=== PATIENT | male | born 1970 | race Hispanic/Latino ===

== ENCOUNTER 2020-06-17 14:54 | Emergency (ER) | payer OTHER ==
--- OUTSIDE RECORDS SUMMARY | 2020-06-17 15:01 | XMS REPORT | Continuity of Care Document ---
:1970 Author Organization [facility] t Address [address] [place] [address] Care Team Providers Name Role Phone Pcp MD Primary Care Physician Unavailable Sarah ADLER, K N Attending Clinician Salvatore ADLER, A Attending Clinician Problems Condition Condition Condition Status Onset Resolution Last Treating Co mments Source Name Details Category Date Date Treatment Clinician Date Uncontroll Uncontroll Disease Active C [facility] other ed other 09-30 [facility] - specified specified 00:00: [facility] diabetes diabetes 00 Center mellitus mellitus with stage with stage 4 chronic 4 chronic kidney kidney disease, disease, unspecifie unspecifie d whether d whether senior living senior living insulin insulin use use Essential Essential Disease Active [facility] hypertensi hypertensi 09-30 Nakia kes - on, on, 00:00: Medical malignant malignant 00 Cent er Anemia of Anemia of Disease Active [facility] renal renal 09-30 kes - disease disease 00:00: Medical 00 Center Pre-transp Pre-transp Disease Active [facility] 09-30 [facility] - evaluation evaluation 00:00: De dical for for 00 Center chronic chronic kidney kidney disease disease ESRD (end ESRD (end Disease Active [facility] stage stage 09-30 [facility] - renal renal 00:00: Medical disease) disease) 00 Center Allergies, Adverse Reactions, Alerts This patient has no known allergies or adverse reactions. Social History Social Habit Start Date Stop Date Quantity Comments Source Sex Assigned At [facility] Smoking Status Start Date Stop Date Source Former smoker 2018-05-08 00:00:00 2018-05-08 00:00:00 [facility] Medications Ordered Filled Start Stop Current Ordering Indication Dosage Frequency Signature Comments Components Source Medication Medication Date Date Medication? Clinician (SIG) Name Name omega-3 Yes 2g Q.5D Take [address] [facility] fatty 9-11 by mouth [facility] - acids-fish 12:01: (two) Medica l oil 12 times Center 340-1,000 daily. mg Cap per capsule FA-vit Yes 1{tbl} QD Take [address] [facility] Bcomp&C-clem 9-11 tablet by Sil[facility] - enium-zinc 12:01: mouth Medica l (FOLIC 12 daily. [place] ACID-VITAMI N B COMPLEX-VIT SAMPSON C-SELENIUM- ZINC) 3-70-15 mg-mcg-mg Tab labetalol Yes 100mg Q.5D Take [address] [facility] (NORMODYNE) 9-11 mg by [facility] - 100 MG 12:01: mouth 2 Medical tablet 12 (two) Center times daily. amLODIPine Yes 10mg QD Take [address] (NORVASC) 9-11 by mouth [facility] - 10 MG 12:01: daily. Medical tablet 12 [place] lisinopril Yes 40mg QD Take [address] (PRINIVIL,Z 9-11 by mouth [facility] - ESTRIL) 40 12:01: daily. Medic al MG tablet 12 [place] SITagliptin Yes 25mg QD Take [address] [facility] (JANUVIA) 9-11 by mouth [facility] - 25 MG 12:01: daily. Medical tablet 12 [place] sevelamer Yes 800mg Take [address] [facility] (RENVELA) 9-11 mg by [facility] - 800 mg 11:59: mouth 3 Medical tablet 36 (three) Center times daily with meals 4 tabs with each meal . Procedures This patient has no known procedures. Plan of Care Planned Activity Planned Date Details Comments Source Future Scheduled 2019-11-10 INFLUENZA VACCINE (#1) [facility] - Test 00:00:00 [code = INFLUENZA Medical Ce nter VACCINE (#1)] Future Scheduled 2017-10-[address] [facility] - Test 00:00:00 WELLNESS (YEAR 2 or Medical Center FIRST YEAR if no IPPE) [code = MEDICARE ANNUAL WELLNESS (YEAR 2 or FIRST YEAR if no IPPE)] Future Scheduled 2017-09-[address] [facility] - Test 00:00:00 measurement Medical Center (procedure) [code = 11092292] Future Scheduled [address] [facility] - Test 00:00:00 (procedure) [code = Medical Center 54536684] Future Scheduled [address] DIABETIC EYE EXAM [facility] - Test 00:00:00 [code = DIABETIC EYE Medical Center EXAM] Future Scheduled [address] [facility] [address] [facility] - Test 00:00:00 examination Medical Center (regime/therapy) [code = 748835321] Future Scheduled 1980 Urine screening for [facility] - Test 00:00:00 protein (procedure) Medical Center [code = 224774770] Future Scheduled [address] [facility] - Test 00:00:00 0-64 YRS (1 of 1 - Medical C enter PPSV23) [code = PNEUMOCOCCAL VACCINE 0-64 YRS (1 of 1 - PPSV23)] Encounters Start End Encounter Admission Attending Care Care Encounter Source Date/Time Date/Time Type Type Clinicians Facility Department ID 2020-06-16 2020-06-16 [id number] 00:00:00 00:00:00 Management Cheryl au MULTISPEC [id number] IALTY [id number] [place] [id number] [facility] 2020-05-11 2020-05-11 Telephone Salvatore [facility] [id number] 00:00:00 00:00:00 Zenobia Timmons MULTISPEC [id number] IALTY [id number] [place] [id number] [facility] 2020-04-20 2020-04-20 [facility] [id number] 00:00:00 00:00:00 Cheryl au MULTISPEC [id number] IALTY [id number] [place] [id number] [facility] Results This patient has no known results.
[2020-06-17 17:16] LABS: Absolute Lymphocytes (CBC) 0.5 K/uL (0.7-4.9); Basophils % 0.6 % (0-1.3); Hematocrit 18.4 % (39.6-49.0); Lymphocytes % 6.8 % (15.3-44.8); RBC Red Blood Cell Count 1.97 M/uL (4.33-5.43)
[2020-06-17 17:28] LABS: Protime INR 1.12
[2020-06-17 17:55] LABS: ALT/SGPT 16 U/L (12-78); AST/SGOT 11 U/L (15-37); Albumin 3.5 g/dL (3.4-5.0); Alkaline Phosphatase 34 U/L (45-117); BUN Blood Urea Nitrogen 37 mg/dL (7-18); Bicarbonate 27 mmol/L (21-32); Bilirubin Direct 0.2 mg/dL (0-0.2); Bilirubin Total 0.5 mg/dL (0.2-1.0); Glucose Level 130 mg/dL (74-106); Magnesium 2.6 mg/dL (1.8-2.4); Protein, Total 6.4 g/dL (6.4-8.2); Sodium Level 137 mmol/L (136-145); Troponin (Emerg Dept Use Only) < 0.02 ng/mL (0.0-0.045)
[2020-06-17 18:03] LABS: Potassium 5.7 mmol/L (3.5-5.1)
[2020-06-17 18:23] LABS: Blood Morphology Comment NOTED (NOT SEEN); Hypochromasia 1+; Platelet Estimate ADEQ; White Blood Cell Scan OK (OK)
--- NOTE | 2020-06-17 18:35 | RAD REPORT ---
EXAM DESCRIPTION: RAD - Chest Single View - 06/17/2020 6:23 pm CLINICAL HISTORY: anemia Chest pain. COMPARISON: No comparisons FINDINGS: Portable technique limits examination quality. The lungs are grossly clear. The heart is normal in size. No displaced fractures. IMPRESSION: No acute intrathoracic process suspected.
[2020-06-17] MEDS ORDERED: ALBUTEROL 2.5 MG/3 ML NEB SOL ONE (18:51)
[2020-06-17] MEDS ORDERED: INSULIN -REGULAR HUMAN 50 UNIT/0.5 ML ML ONE (18:52)
[2020-06-17] MEDS ORDERED: SOD POLYSTYREN SUL 15 GM/60 ML UCUP ONE (18:52)
[2020-06-17] MEDS ORDERED: D50W 25 GM/50 ML SYRINGE IV ONE (18:53)
[2020-06-17] MEDS ORDERED: FUROSEMIDE 100 MG/10 ML VIAL IV ONE (19:25)
--- NOTE | 2020-06-17 19:42 | RAD REPORT ---
EXAM DESCRIPTION: CT - Abdomen Pelvis Wo Contrast - 06/17/2020 7:26 pm CLINICAL HISTORY: Abdominal pain. rectal bleeding COMPARISON: No comparisons TECHNIQUE: CT imaging of the abdomen and pelvis was performed without contrast. Solid organ, bowel a nd vascular assessment is limited due to lack of IV and oral contrast. All CT scans are performed using dose optimization technique as appropriate and may include automated exposure control or mA/KV adjustment according to patient size. FINDINGS: The lower lung caceres are clear. The liver, spleen, pancreas, adrenal glands and kidneys are within normal limits for a limited non-co ntrast examination.Cholecystectomy clips. No bowel obstruction, free air, free fluid or abscess. Mild rectosigmoid wall thickening is present s uggesting colitis. Numerous sigmoid diverticula are present. The appendix is normal. The osseous structures are within normal limits. IMPRESSION: Mild rectosigmoid colitis is a possibility. A limited non-contrast examination was performed as detailed.
--- NOTE | 2020-06-17 20:04 | ER ---
Nurse's Notes [facility] Name: Jose E Kumar Jr Age: 50 yrs Sex: Male : 1970 Arrival Date: 06/17/2020 Time: 14:59 Bed 13 Private MD: Diagnosis: Gastrointestinal hemorrhage, unspecified;Anemia in chronic diseases classified elsewhere;Hyperkalemia;Colitis Presentation: 06/17 15:19 Chief complaint: Parent and/or Guardian states: Mother states, "He has vision problems ss and didn't realize that he had blood in his stool. I looked in the toilet and there was some blood on the toilet paper. He had a colonoscopy in [place] a week ago and that doctor told him to come here." Pt c/o feeling tired and intermittent dizziness that began this morning. Coronavirus screen: Client denies travel out of the [place] in the last 14 days. Ebola Screen: Patient denies exposure to infectious person. Patient denies travel to an Ebola-affected area in the 21 days before illness onset. Initial Sepsis Screen: Does the patient meet any 2 criteria? No. Patient's initial sepsis screen is negative. Does the patient have a suspected source of infection? No. Patient's initial sepsis screen is negative. Risk Assessment: Do you want to hurt yourself or someone else? Patient reports no desire to harm self or others. Onset of symptoms was June 17, 2020. 15:19 Method Of Arrival: Wheelchair ss 15:19 Acuity: DENISHA 3 ss Historical: - Allergies: 15:23 No Known Allergies; ss - PMHx: 15:23 dialysis MWF; ESRD; Diabetes - IDDM; Hypertension; High Cholesterol; ss - PSHx: 15:23 Dialysis fistula L forearm; Cholecystectomy; L 5th digit removed; ss - Immunization history:: Adult Immunizations up to date. - Social history:: Smoking status: Patient denies any tobacco usage or history of. Screenin:06 Abuse screen: Denies threats or abuse. Nutritional screening: No deficits noted. ll1 Tuberculosis screening: No symptoms or risk factors identified. Fall Risk IV access (20 points). Gait- Weak (10 pts.). Total Edmondson Fall Scale indicates Low Risk Score (25-44 pts). Fall prevention measures have been instituted. Side Rails Up X 2 Frequent Obs/Assesments occuring As available Patient and Family Educated on Fall Prevention Program and strategies. Assessment: 15:25 General: Appears in no apparent distress. Behavior is calm, cooperative, appropriate ll1 for age. Pain: Denies pain. Neuro: Level of Consciousness is awake, alert, obeys commands, Oriented to person, place, time, situation, Appropriate for age Blender Conveyor Operator are equal bilaterally Moves all extremities. Full function Gait is steady, Speech is normal, Facial symmetry appears normal, Reports dizziness, weakness. Cardiovascular: Reports fatigue, Heart tones S1 S2 Capillary refill < 3 seconds Clubbing of nail beds is absent JVD is absent Patient's skin is warm and dry. GI: Abdomen is flat, Bowel sounds present X 4 quads. Abd is soft and non tender X 4 quads. Reports rectal bleeding. 16:25 Reassessment: No changes from previously documented assessment. Patient and/or family ll1 updated on plan of care and expected duration. Pain level reassessed. Patient is alert, oriented x 3, equal unlabored respirations, skin warm/dry/pink. 17:25 Reassessment: No changes from previously documented assessment. Patient and/or family ll1 updated on plan of care and expected duration. Pain level reassessed. Patient is alert, oriented x 3, equal unlabored respirations, skin warm/dry/pink. 18:30 Reassessment: No changes from previously documented assessment. Patient and/or family ll1 updated on plan of care and expected duration. Pain level reassessed. 19:30 Reassessment: No changes from previously documented assessment. Patient and/or family ll1 updated on plan of care and expected duration. Pain level reassessed. 20:30 Reassessment: No changes from previously documented assessment. Patient and/or family ll1 updated on plan of care and expected duration. Pain level reassessed. 21:30 Reassessment: No changes from previously documented assessment. Patient and/or family ll1 updated on plan of care and expected duration. Pain level reassessed. 22:45 Reassessment: Patient appears in no apparent distress at this time. Patient and/or sf family updated on plan of care and expected duration. Pain level reassessed. Patient is alert, oriented x 3, equal unlabored respirations, skin warm/dry/pink. 23:17 Reassessment: Patient appears in no apparent distress at this time. No changes from sf previously documented assessment. Patient and/or family updated on plan of care and expected duration. Pain level reassessed. Patient is alert, oriented x 3, equal unlabored respirations, skin warm/dry/pink. Given another warm blanket. Vital Signs: 15:19 BP 120 / 58; Pulse 64; Resp 16; Temp 97.5(TE); Pulse Ox 100% on R/A; Weight 87.5 kg ss (M); Height 5 ft. 7 in. (170.18 cm); Pain 0/10; 18:36 BP 153 / 77; Pulse 65; Resp 16; Pulse Ox 100% ; ll1 22:06 BP 125 / 65; Pulse 67; Resp 16; Temp 97.5; Pulse Ox 100% on R/A; Pain 0/10; ll1 22:45 BP 118 / 63; Pulse 65; Resp 16; Temp 97.8; Pulse Ox 98% ; sf 23:30 BP 134 / 69; Pulse 64; Resp 16; Temp 97.9; Pulse Ox 100% ; sf 15:19 Body Mass Index 30.21 (87.50 kg, 170.18 cm) ED Course: 14:59 Patient arrived in ED. ds1 15:21 Triage completed. ss 15:23 Arm band placed on right wrist. ss 16:28 Suad Ambriz, BONI is Primary Nurse. ll1 16:43 Sabas Stroud PA is PHCP. cp 16:43 Sabas Allen MD is Attending Physician. cp 17:16 Inserted saline lock: 20 gauge in right antecubital area, using aseptic technique. mt Blood collected. 18:23 XRAY Chest (1 view) In Process Unspecified. EDMS 19:25 Abdomen In Process Unspecified. EDMS 19:54 Initiated Transfer to [facility] spoke with Mary. ar5 20:30 [facility] declined due to all campuses being \\T\\ capacity. ar5 20:31 Initiated transfer to [facility] spoke with Carrie. ar5 20:50 [facility] declined due to being at capacity. ar5 20:53 Initiated transfer to [facility] spoke with Kishor. ar5 21:00 done with Sabas Stroud. ar5 21:15 [facility] accepted waiting on room assignment and AOC. Needs to fax facesheet to ar5 [phone]. 21:30 Inserted saline lock: 22 gauge in right forearm, using aseptic technique. ll1 22:07 Patient has correct armband on for positive identification. Bed in low position. Call ll1 light in reach. Side rails up X 1. Pulse ox on. NIBP on. 22:31 Packed RBC Leukored Sent. sf 22:31 Basic Metabolic Panel Sent. sf 23:14 transfer transportation to receiving facility. sf 23:14 Report given to Pearl Sotomayor RN ([facility], for room 1028). sf 23:14 No provider procedures requiring assistance completed. Patient transferred, IV remains sf in place. 23:40 Report given to [facility] 2. sf Administered Medications: 18:40 Drug: Albuterol 2.5 mg Route: Inhalation; ll1 18:46 Drug: Insulin Regular Human 5 units {Co-Signature: bw (Rachel Fischer RN).} Route: IVP; ll1 Site: right forearm; 19:13 Follow up: Response: No adverse reaction; RASS: Alert and Calm (0) ll1 18:47 Drug: D50W 50 ml Route: IVP; Site: right forearm; ll1 19:13 Follow up: Response: No adverse reaction ll1 18:47 Drug: Albuterol 2.5 mg Route: Inhalation; ll1 18:48 Drug: Kayexalate 30 grams Route: PO; ll1 19:14 Follow up: Response: No adverse reaction ll1 19:12 Drug: Lasix (furosemide) 60 mg Route: IVP; Site: right forearm; 1 22:20 Follow up: Response: No adverse reaction; RASS: Alert and Calm (0) ll1 19:13 Drug: Albuterol 2.5 mg Route: Inhalation; ll1 19:14 Follow up: Response: No adverse reaction ll1 20:04 Drug: metroNIDAZOLE 500 mg Volume: 100 ml; Route: IVPB; Infused Over: 30 mins; Site: ll1 right antecubital; 21:18 Follow up: Response: No adverse reaction; RASS: Alert and Calm (0); IV Status: ll1 Completed infusion; IV Intake: 50ml 21:18 Drug: Cipro (ciprofloxacin) 200 mg Volume: 100 ml; Route: IVPB; Infused Over: 60 mins; 1 Site: right forearm; 22:20 Follow up: Response: No adverse reaction; RASS: Alert and Calm (0); IV Status: ll1 Completed infusion; IV Intake: 100ml Intake: 21:18 IV: 50ml; Total: 50ml. ll1 22:20 IV: 100ml; Total: 150ml. ll1 Outcome: 20:03 ER care complete, transfer ordered by cp 23:14 Transferred by ground EMS to [facility], Transfer form sf completed. 23:14 Condition: stable 23:14 Instructed on the need for admit. 23:59 Patient left the ED. sf Signatures: Dispatcher [employer] EDMS Maribel Waters ds1 Kendal Machado RN RN ss Sabas Stroud PA PA cp Thompson, Moriah mt Robles, Autumn ar5 Lewis, Lynsay, RN RN ll1 Carlos John RN RN sf Rachel Fischer RN Corrections: (The following items were deleted from the chart) 15:21 15:19 Chief complaint: Parent and/or Guardian states: Mother states, "He has vision ss problems and didn't realize that he had blood in his stool. I looked in the toilet and there was some blood on the toilet paper." Pt c/o feeling tired and intermittent dizziness that began this morning. ss 19:13 18:47 Albuterol 2.5 mg Inhalation ll1 ll1 21:14 20:56 Initiated Transfer to [facility] spoke with Mary gutiérrez
--- NOTE | 2020-06-17 20:04 | EDPHYS ---
Physician Documentation [facility] Name: oJse E Kumar Jr Age: 50 yrs Sex: Male : 1970 Arrival Date: 06/17/2020 Time: 14:59 Bed 13 Private MD: ED Physician Sabas Allen HPI: 06/17 17:05 This 50 yrs old Male presents to ER via Wheelchair with complaints of Rectal cp Bleeding, Weakness. 17:05 The patient presents to the emergency department with bleeding from the rectum/anus, cp that is moderate. Onset: The symptoms/episode began/occurred at an unknown time. Associate signs and symptoms: Pertinent positives: general weakness. Historical: - Allergies: 15:23 No Known Allergies; ss - PMHx: 15:23 dialysis MWF; ESRD; Diabetes - IDDM; Hypertension; High Cholesterol; ss - PSHx: 15:23 Dialysis fistula L forearm; Cholecystectomy; L 5th digit removed; ss - Immunization history:: Adult Immunizations up to date. - Social history:: Smoking status: Patient denies any tobacco usage or history of. ROS: 17:10 Abdomen/GI: Positive for rectal bleeding. cp 17:10 Eyes: Negative for injury, pain, redness, and discharge. cp 17:10 Constitutional: Negative for body aches, chills, fever, poor PO intake. 17:10 Cardiovascular: Negative for chest pain, edema, palpitations. 17:10 Respiratory: Negative for cough, shortness of breath, wheezing. 17:10 Neuro: Positive for general weakness, Negative for altered mental status, dizziness, syncope. 17:10 All other systems are negative. Exam: 17:15 Constitutional: The patient appears in no acute distress, alert, awake, cp non-diaphoretic, non-toxic, well developed, well nourished. 17:15 Head/Face: Normocephalic, atraumatic. cp 17:15 Eyes: Periorbital structures: appear normal, Conjunctiva: normal, no exudate, no injection, Sclera: no appreciated abnormality, Lids and lashes: appear normal, bilaterally. 17:15 ENT: External ear(s): are unremarkable, Nose: is normal, Mouth: Lips: moist, Oral mucosa: pink and intact, moist, Posterior pharynx: Airway: no evidence of obstruction, patent. 17:15 Neck: ROM/movement: is normal, is supple, without pain, no range of motions limitations. 17:15 Chest/axilla: Inspection: normal, Palpation: is normal, no crepitus, no tenderness. 17:15 Cardiovascular: Rate: normal, Rhythm: regular, Edema: ankle edema, that is mild, JVD: is not appreciated. 17:15 Respiratory: the patient does not display signs of respiratory distress, Respirations: normal, no use of accessory muscles, no retractions, labored breathing, is not present, Breath sounds: are clear throughout, no decreased breath sounds. 17:15 Abdomen/GI: Inspection: abdomen appears normal, Bowel sounds: active, all quadrants, Palpation: abdomen is soft and non-tender, in all quadrants, Rectal exam: gross blood noted maroon colored. 17:15 Back: pain, is absent, ROM is normal. 17:15 Neuro: Orientation: to person, place \T\ time. Mentation: is normal, Motor: moves all fours, strength is normal. 17:28 ECG was reviewed by the Attending Physician. Vital Signs: 15:19 BP 120 / 58; Pulse 64; Resp 16; Temp 97.5(TE); Pulse Ox 100% on R/A; Weight 87.5 kg ss (M); Height 5 ft. 7 in. (170.18 cm); Pain 0/10; 18:36 BP 153 / 77; Pulse 65; Resp 16; Pulse Ox 100% ; ll1 22:06 BP 125 / 65; Pulse 67; Resp 16; Temp 97.5; Pulse Ox 100% on R/A; Pain 0/10; ll1 22:45 BP 118 / 63; Pulse 65; Resp 16; Temp 97.8; Pulse Ox 98% ; sf 23:30 BP 134 / 69; Pulse 64; Resp 16; Temp 97.9; Pulse Ox 100% ; sf 15:19 Body Mass Index 30.21 (87.50 kg, 170.18 cm) ss MDM: 16:45 Patient medically screened. lesli 17:30 Differential diagnosis: hemorrhoids, colitis, anemia, diverticulitis. cp 20:00 Data reviewed: vital signs, nurses notes, lab test result(s), EKG, radiologic studies, cp CT scan, plain films. 20:00 Test interpretation: by ED physician or midlevel provider: ECG, plain radiologic cp studies. 21:33 Physician consultation: was contacted at 21:30, regarding regarding transfer, to [facility]. cp patient's condition, accepting physician will be DR Jelani Maya. 06/17 17:01 Order name: Basic Metabolic Panel 06/17 17:01 Order name: CBC with Diff cp 06/17 17:31 Interpretation: Normal except: RBC 1.97; HGB 6.0; HCT 18.4; RDW 15.5; RITA% 86.0; LYM% cp 6.8. 06/17 17:01 Order name: LFT's; Complete Time: 18:21 cp 06/17 21:10 Interpretation: Normal except: AST 11; ALK 34. cp 06/17 17:01 Order name: Magnesium; Complete Time: 18:21 cp 06/17 17:01 Order name: PT-INR; Complete Time: 17:31 cp 06/17 17:01 Order name: Troponin (emerg Dept Use Only); Complete Time: 18:21 cp 06/17 17:01 Order name: Ptt, Activated; Complete Time: 17:31 cp 06/17 17:01 Order name: Type And Screen 06/17 17:02 Order name: Basic Metabolic Panel; Complete Time: 18:21 EDMS 06/17 18:21 Interpretation: Normal except: K 5.7; GLUC 130; BUN 37; CRE 6.32; GFR 9; CA 8.4. cp 06/17 18:01 Order name: Packed RBC Leukored EDLA 06/17 18:23 Order name: CBC Smear Scan EDLA 06/17 18:28 Order name: SARS-COV-2 RT PCR; Complete Time: 19:47 EDLA 06/17 17:01 Order name: EKG; Complete Time: 17:02 cp 06/17 17:01 Order name: Cardiac monitoring; Complete Time: 17:21 cp 06/17 17:01 Order name: EKG - Nurse/Tech; Complete Time: 17:19 cp 06/17 17:01 Order name: IV Saline Lock; Complete Time: 17:17 cp 06/17 17:01 Order name: Labs collected and sent; Complete Time: 17:17 cp 06/17 17:01 Order name: O2 Per Protocol; Complete Time: 17:17 cp 06/17 17:01 Order name: O2 Sat Monitoring; Complete Time: 17:17 cp 06/17 17:16 Order name: Abdomen ; Complete Time: 19:47 EDMS 06/17 17:33 Order name: XRAY Chest (1 view); Complete Time: 19:47 cp 06/17 18:27 Order name: Vital Signs: please update; Complete Time: 18:38 cp 06/17 19:56 Order name: Transfuse; Complete Time: 22:31 cp EC:28 Rate is 67 beats/min. Rhythm is regular. ME interval is normal. QRS interval is normal. cp QT interval is normal. T waves are Inverted in lead aVR. Interpreted by me. Reviewed by me. Administered Medications: 18:40 Drug: Albuterol 2.5 mg Route: Inhalation; ll1 18:46 Drug: Insulin Regular Human 5 units {Co-Signature: chelita (Rachel Fischer RN).} Route: IVP; 1 Site: right forearm; 19:13 Follow up: Response: No adverse reaction; RASS: Alert and Calm (0) 1 18:47 Drug: D50W 50 ml Route: IVP; Site: right forearm; 1 19:13 Follow up: Response: No adverse reaction 1 18:47 Drug: Albuterol 2.5 mg Route: Inhalation; 1 18:48 Drug: Kayexalate 30 grams Route: PO; ll1 19:14 Follow up: Response: No adverse reaction ll1 19:12 Drug: Lasix (furosemide) 60 mg Route: IVP; Site: right forearm; 1 22:20 Follow up: Response: No adverse reaction; RASS: Alert and Calm (0) 1 19:13 Drug: Albuterol 2.5 mg Route: Inhalation; ll1 19:14 Follow up: Response: No adverse reaction ll1 20:04 Drug: metroNIDAZOLE 500 mg Volume: 100 ml; Route: IVPB; Infused Over: 30 mins; Site: ll1 right antecubital; 21:18 Follow up: Response: No adverse reaction; RASS: Alert and Calm (0); IV Status: ll1 Completed infusion; IV Intake: 50ml 21:18 Drug: Cipro (ciprofloxacin) 200 mg Volume: 100 ml; Route: IVPB; Infused Over: 60 mins; 1 Site: right forearm; 22:20 Follow up: Response: No adverse reaction; RASS: Alert and Calm (0); IV Status: ll1 Completed infusion; IV Intake: 100ml Disposition: 06/18 07:32 Co-signature as Attending Physician, Sabas Allen MD I agree with the assessment and [facility] plan of care. Disposition: 06/17/20 20:03 Transfer ordered to [facility]. Diagnosis are Gastrointestinal hemorrhage, unspecified, Anemia in chronic diseases classified elsewhere, Hyperkalemia, Colitis. - Reason for transfer: Higher level of care. - Accepting physician is DR Jelani Maya. - Condition is Stable. - Problem is new. - Symptoms have improved. Signatures: Dispatcher [employer] EDMS Sabas Allen MD MD cha Smirch, Shelby, RN RN ss Sabas Stroud PA PA cp Lewis, Lynsay RN RN ll1 Carlos John RN RN Rachel Fischer RN Corrections: (The following items were deleted from the chart) 06/17 17:16 17:02 Abdomen Pelvis W Con+CT.RAD.BRZ ordered. EDLA EDMS 17:41 17:03 CORONAVIRUS+MR.LAB.BRZ ordered. EDLA EDMS 18:21 18:21 Normal except: K 5.7; GLUC 130; BUN 37; CRE 6.32; GFR 9. cp cp 22:14 20:03 06/17/2020 20:03 Transfer ordered to [facility]. Diagnosis is cp Gastrointestinal hemorrhage, unspecified; Anemia in chronic diseases classified elsewhere; Hyperkalemia. Reason for transfer: Higher level of care. Accepting physician is Doctor. Condition is Stable. Problem is new. Symptoms have improved. cp 22:14 22:14 06/17/2020 20:03 Transfer ordered to [facility]. Diagnosis is cp Gastrointestinal hemorrhage, unspecified; Anemia in chronic diseases classified elsewhere; Hyperkalemia; Colitis. Reason for transfer: Higher level of care. Accepting physician is DR Jelani Maya. Condition is Stable. Problem is new. Symptoms have improved. cp 23:59 22:14 06/17/2020 20:03 Transfer ordered to [facility]. Diagnosis is Gastrointestinal sf hemorrhage, unspecified; Anemia in chronic diseases classified elsewhere; Hyperkalemia; Colitis. Reason for transfer: Higher level of care. Accepting physician is DR Jelani Maya. Condition is Stable. Problem is new. Symptoms have improved. cp
[2020-06-17] MEDS ORDERED: METRONIDAZOLE 500mg IVPB 500 MG/100 ML BAG IV ONE (20:18)
[2020-06-17] MEDS ORDERED: Ciprofloxacin 200mg IV 200 MG/100 ML IV.SOLN. IV ONE (20:18)
[2020-06-17] MEDS ORDERED: NA CHLORIDE 0.9% 500 ML ONE (21:27)
[2020-06-18 13:15] VITALS: BP 134/69; TEMP 97.9; O2SAT 100
== END 2020-06-17 23:59 | disposition short-term general hospital (02) ==
LOC: ER 14:54
PROC: 30233N1 Transfusion of Nonautologous Red Blood Cells into Peripheral Vein, Percutaneous Approach (ICD-10-PCS; principal; 2020-06-17)
DX: E11.22 Type 2 diabetes mellitus with diabetic chronic kidney disease (principal); D63.1 Anemia in chronic kidney disease; E87.5 Hyperkalemia; K52.9 Noninfective gastroenteritis and colitis, unspecified; I12.0 Hypertensive chronic kidney disease with stage 5 chronic kidney disease or end stage renal disease; N18.6 End stage renal disease; Z99.2 Dependence on renal dialysis; Z20.822 Contact with and (suspected) exposure to COVID-19
CPT/HCPCS: 85025; 80048; 36415; 86900; 83735; 86850; 85610; 86901; 80076; 85730; 84484; 74176; 71045; 99285; 36430; U0003; J0744; P9016; J7040